=== PATIENT | male | born 1975 | race Caucasian/White ===

== ENCOUNTER 2025-07-31 04:37 | Inpatient (IN) | payer OTHER, MEDICARE ==
[2025-07-31] VITALS (7 sets, daily range): BP systolic 112–123; BP diastolic 64–73
[~2025-07-31] VITALS: Ht 172.7 cm; Wt 106.6 kg
[2025-07-31 04:54] LABS: BASOPHILS 0.3 % (0.2-1.2); EOSINOPHILS 2.4 % (0.8-7.0); LYMPHOCYTES 27.1 % (21.8-53.1); MCH 28.9 PG (25.7-32.2); MCHC 33.5 g/dL (32.3-36.5); MCV 86.0 fL (79.0-92.2); MONOCYTES 5.9 % (5.3-12.2); NEUTROPHILS 63.8 % (34.0-67.9); RBC 5.51 M/uL (4.63-6.08)
[2025-07-31] MEDS ORDERED: SODIUM CHLORIDE 0.9% 1,000 ML IV SCH (05:00)
[2025-07-31] MEDS ORDERED: HYDROmorphone HCL 1 MG/ML SYR IV PRN ×2 (05:00→10:15)
[2025-07-31 05:10] LABS: ALT (SGPT) 52.0 U/L (14-59); AST (SGOT) 24.0 U/L (15-37); GLOMERULAR FILTRATION RATE,EST 82.0 mL/min (>60); PROTEIN, TOTAL 7.6 g/dL (6.4-8.2); UREA NITROGEN 12.0 mg/dL (7-18)
[2025-07-31 05:56] LABS: CHOLESTEROL/HDL RATIO 6.2; LDL CHOLESTEROL 180.0 mg/dL (< 129); NON-HDL CHOLESTEROL 213.0; VLDL CHOLESTEROL 32.0
[2025-07-31] MEDS ORDERED: OMEPRAZOLE20 MG PO (06:39)
[2025-07-31] MEDS ORDERED: TADALAFIL20 M1 PO (06:40)
[2025-07-31] MEDS ORDERED: FLOMAX0.4 MG PO (06:41)
[2025-07-31] MEDS ORDERED: DULOXETINE HCL30 MG PO (06:41)
[2025-07-31] MEDS ORDERED: GUANFACINE HCL E1 MG PO (06:42)
[2025-07-31] MEDS ORDERED: MESALAMINE1.2 GM PO (06:43)
[2025-07-31] MEDS ORDERED: NEURONTIN300 MG PO (06:43)
[2025-07-31 07:27] LABS: BLOOD/HGB, URINE NEGATIVE (Negative); KETONE, URINE NEGATIVE (Negative); LEUK ESTERASE, URINE NEGATIVE (negative); NITRITE, URINE NEGATIVE (negative)
[2025-07-31] MEDS ORDERED: PANTOPRAZOLE SODIUM 40 MG/10 ML VIAL IV SCH (10:05)
[2025-07-31] MEDS ORDERED: PROCHLORPERAZINE EDISYLATE 10 MG/2 ML VIAL IV PRN (10:15)
[2025-07-31] MEDS ORDERED: LACTATED RINGER'S 1,000 ML IV SCH (10:15)
[2025-07-31] MEDS ORDERED: HYDROmorphone HCL 1 MG/ML SYR IV ONE (10:30)
[2025-07-31] MEDS ORDERED: PHARMACY RENAL DOSE ADJUSTMENT 1 DOSE MISC PO SCH (12:00)
[2025-07-31] MEDS ORDERED: MELATONIN 3 MG TAB PO PRN (21:00)
[2025-08-01] VITALS (9 sets, daily range): BP systolic 120–154; BP diastolic 66–80
[2025-08-01 05:23] LABS: BASOPHILS 0.1 % (0.2-1.2); EOSINOPHILS 1.5 % (0.8-7.0); LYMPHOCYTES 32.0 % (21.8-53.1); MCH 28.8 PG (25.7-32.2); MCHC 33.8 g/dL (32.3-36.5); MCV 85.2 fL (79.0-92.2); MONOCYTES 6.3 % (5.3-12.2); NEUTROPHILS 59.9 % (34.0-67.9); RBC 4.66 M/uL (4.63-6.08)
[2025-08-01 05:39] LABS: ALT (SGPT) 36.0 U/L (14-59); AST (SGOT) 18.0 U/L (15-37); GLOMERULAR FILTRATION RATE,EST 103.0 mL/min (>60); PHOSPHORUS, INORGANIC 2.6 mg/dL (2.5-4.9); PROTEIN, TOTAL 5.8 g/dL (6.4-8.2); UREA NITROGEN 8.0 mg/dL (7-18)
[2025-08-01] MEDS ORDERED: MAGNESIUM SULFATE 2 GM/50 ML BAG IV ONE (09:00)
[2025-08-01] MEDS ORDERED: LIPITOR20 MG PO ×2 (17:31→17:34)
== END 2025-08-01 18:00 | disposition home or self-care (01) | DRG 392 ==
LOC: ED 04:37 → MS 10:37
PROVIDERS: Emergency Medicine; ADMIT Family Medicine; ATTEND Family Medicine
DX: R10.13 Epigastric pain (principal); R91.1 Solitary pulmonary nodule; F12.90 Cannabis use, unspecified, uncomplicated; Z87.19 Personal history of other diseases of the digestive system; M54.9 Dorsalgia, unspecified; G89.29 Other chronic pain; Z79.899 Other long term (current) drug therapy; K21.9 Gastro-esophageal reflux disease without esophagitis
CPT/HCPCS: 36415; 74177; 76705; 80053; 80061; 81003; 83690; 83735; 84100; 85025; J1171; J1790; J2405; J2470; J3475; J7030; J7121; Q9967